=== PATIENT | female | born 1970 | race Hispanic/Latino ===

== ENCOUNTER → 2019-03-16 | Outpatient (CLI) | payer OTHER ==
--- NOTE | 2019-03-16 12:17 | MAM ---
EXAM DESCRIPTION: 3D Diagnostic, Left: Digital Mammography CLINICAL HISTORY: 48 yearsFemaleABNORMAL MAMMO . Mass density upper outer quadrant posterior third left breast in the axillary tail.. Patient complained of tenderness in the scanned region via emergency services dispatcher. COMPARISON: Bilateral screening digital breast tomosynthesis 02/17/2019.. TECHNIQUE: Left breast LM projection full-field images, digital mammographic tomosynthesis technique. CAD not available. Transcutaneous scanning of the left breast utilizing murdock-scale and Doppler modes. Scanning performed by the veneer glue spreader and Dr. Aguayo. FINDINGS: The breast parenchymal density pattern is: Heterogeneously dense breast tissue, which may obscure small masses. No skin thickening or nipple retraction again noted is mass density on the superior and lateral aspect of the dense fibroglandular tissues posterior third left breast at the 1:00-2:00 position. [place]-shaped, with apex directed inferiorly. Microcalcifications demonstrated within the mass. Ultrasound: Scanning of the upper-outer quadrant of the left breast from the nipple to the axilla. Mostly fibroglandular tissues with minimal islands of fatty tissue. At the 1:00 position 8 cm from the nipple is a hypoechoic mass with partially circumscribed and partially lobulated margins. Heterogeneous. Not vascular. Predominantly posterior acoustic enhancement. Dimensions are 1.3 x 1.2 cm. At the 2:30-3:30 position, lateral to the nipple, is a less hypoechoic mass with partially lobulated and partially annular margins. Mixed posterior acoustic enhancement and shadowing. Minimally vascular. No distinct cysts in the scanned region. No parenchymal edema or large calcifications. No overlying skin changes. IMPRESSION: 2 masses in the upper outer quadrant left breast could represent lymph nodes, fibroadenomas, or tumors. ASSESSMENT: BI-RADS CATEGORY 4: SUSPICIOUS. SUB-CATEGORY 4A - LOW SUSPICION FOR MALIGNANCY. RECOMMENDATION: Surgical consultation and tissue diagnosis should be considered. The FINDINGS and FOLLOW-UP plan were reviewed in person with the patient via emergency services dispatcher, following the examination. Written communication explaining the IMPRESSION and FOLLOW-UP will be mailed to the patient and referring care provider. Electronically signed by: Buddy Aguayo MD 03/16/2019 12:15 PM [email or web address]
--- NOTE | 2019-03-16 15:53 | US ---
EXAM DESCRIPTION: Breast,Left: Ultrasound. CLINICAL HISTORY: 48 yearsFemaleABNORMAL MAMMO COMPARISON: Diagnostic left breast digital tomosynthesis on this visit. Bilateral screening digital breast tomosynthesis 02/17/2019. TECHNIQUE: Transcutaneous scanning of the left breast utilizing murdock-scale and Doppler modes. Scanning performed by the offset label rewinder and Dr. Aguayo. FINDINGS: Scanning of the upper-outer quadrant of the left breast from the nipple to the axilla. Mostly fibroglandular tissues with minimal islands of fatty tissue. At the 1:00 position 8 cm from the nipple is a hypoechoic mass with partially circumscribed and partially lobulated margins. Heterogeneous. Not vascular. Predominantly posterior acoustic enhancement. Dimensions are 1.3 x 1.2 cm. At the 2:30-3:30 position, lateral to the nipple, is a less hypoechoic mass with partially lobulated and partially annular margins. Mixed posterior acoustic enhancement and shadowing. Minimally vascular. No distinct cysts in the scanned region. No parenchymal edema or large calcifications. No overlying skin changes. IMPRESSION: 1. BI-RADS CATEGORY: 4 - SUSPICIOUS. SUB - CATEGORY 4A: LOW SUSPICION FOR MALIGNANCY. 2. Please refer to diagnostic left breast digital tomosynthesis examination and report on this visit. The FINDINGS and various follow-up plans were reviewed in person with the patient after the examination. Written communication explaining the IMPRESSION and FOLLOW-UP will be mailed to the patient and referring care provider. CRITICAL COMMUNICATION: The critical value was discussed directly by phone with the [facility] nurse navigator for breast screening at approximately 1300 hours, on March 16, 2019. Electronically signed by: Buddy Aguayo MD 03/16/2019 3:50 PM CDT
== END ==
LOC: MAMMO 11:43
PROVIDERS: ATTEND Family Medicine
DX: R92.8 Other abnormal and inconclusive findings on diagnostic imaging of breast (principal)
CPT/HCPCS: 76641; 77065; G0279

== ENCOUNTER → 2019-03-31 | Outpatient (CLI) | payer OTHER ==
--- NOTE | 2019-03-31 10:42 | OP ---
DATE OF PROCEDURE: 03/31/19 PREOPERATIVE DIAGNOSIS: 1. Abnormal left mammogram with mass at 1 o'clock. POSTOPERATIVE DIAGNOSIS: 1. Abnormal left mammogram with mass at 1 o'clock. PROCEDURE: 1. Sonographically guided needle core biopsy, left breast mass. SURGEON: Brannon Esposito MD. PSYCHOLOGICAL EXAMINER: None. ANESTHESIA: Local infiltration of 1% lidocaine. INDICATION: The patient is a 48-year-old female who underwent a mammogram which revealed two lesions in the left breast, one with very little shadow and the other with significant shadowing and irregular margins. This was at 1 o'clock. She was brought to the Ultrasound Suite today for sonographically guided needle core biopsy after the risks, benefits and alternatives to the procedure were discussed and accepted. FINDINGS: Multiple cores were taken with ultrasound identification of the biopsy needle within the mass. PROCEDURE: The patient was placed in the supine position in the Ultrasound Suite. The left breast was inspected using ultrasound. The lesion was identified. The breast lateral to the ultrasound probe was prepped with Betadine and draped. Local infiltration of anesthesia was obtained and a stab wound was made with a 15 blade. Multiple passes were made with the biopsy needle under ultrasound guidance. The specimens were obtained. Hemostasis was obtained with pressure. A single simple 4-0 Nylon suture was placed. Sterile pressure dressing was applied. The patient tolerated the procedure well. Estimated blood loss less than 5 mL. The specimens were sent for pathological evaluation. #[id number] MTDD
== END ==
LOC: US 08:30
PROVIDERS: ATTEND Surgery
DX: N60.22 Fibroadenosis of left breast (principal)